=== PATIENT | female | born 1960 | race Two or more races ===

== ENCOUNTER 2018-03-23 10:30 | Outpatient (CLI) | payer OTHER ==
[~2018-03-23 10:30] MED LIST: ARIMIDEX PO; LIPITOR40 MG PO
== END 2018-03-23 10:35 | disposition home or self-care (01) ==
LOC: MAMO-SONO 10:30
DX: C50.612 Malignant neoplasm of axillary tail of left female breast (principal); N60.11 Diffuse cystic mastopathy of right breast

== ENCOUNTER 2019-05-03 13:48 | Outpatient (CLI) | payer OTHER | END 2019-05-03 15:52 | disposition home or self-care (01) | LOC: MAMO-SONO 13:48 | DX: Z12.31 Encounter for screening mammogram for malignant neoplasm of breast (principal); Z17.0 Estrogen receptor positive status [ER+] ==

== ENCOUNTER → 2019-10-02 | Outpatient (CLI) | payer OTHER | END | disposition home or self-care (01) | LOC: RAD 12:07 | DX: M25.572 Pain in left ankle and joints of left foot (principal); M25.552 Pain in left hip; M25.562 Pain in left knee ==

== ENCOUNTER 2020-05-07 12:41 | Outpatient (CLI) | payer OTHER | END 2020-05-07 12:47 | disposition home or self-care (01) | LOC: MAMO-SONO 12:41 | PROVIDERS: ATTEND Specialist | DX: Z12.31 Encounter for screening mammogram for malignant neoplasm of breast (principal); N60.11 Diffuse cystic mastopathy of right breast; N60.12 Diffuse cystic mastopathy of left breast ==

== ENCOUNTER 2021-07-12 13:54 | Outpatient (CLI) | payer OTHER | END 2021-07-12 14:11 | disposition home or self-care (01) | LOC: MAMO-SONO 13:54 | PROVIDERS: ATTEND Surgery | DX: N60.11 Diffuse cystic mastopathy of right breast (principal); N60.12 Diffuse cystic mastopathy of left breast; Z12.31 Encounter for screening mammogram for malignant neoplasm of breast ==

== ENCOUNTER 2023-10-25 13:02 | Outpatient (CLI) | payer OTHER | END 2023-10-25 13:12 | disposition home or self-care (01) | LOC: MAMO-SONO 13:02 | PROVIDERS: ATTEND Internal Medicine | DX: R07.89 Other chest pain (principal); Z12.39 Encounter for other screening for malignant neoplasm of breast; Z12.31 Encounter for screening mammogram for malignant neoplasm of breast ==

== ENCOUNTER 2025-07-14 12:31 | Outpatient (CLI) | payer OTHER | END 2025-07-14 12:34 | disposition home or self-care (01) | LOC: MAMO-SONO 12:31 | PROVIDERS: ATTEND Internal Medicine | DX: Z12.39 Encounter for other screening for malignant neoplasm of breast (principal); Z12.31 Encounter for screening mammogram for malignant neoplasm of breast ==